=== PATIENT | female | born 1960 | race Caucasian/White ===

== ENCOUNTER 2022-04-06 12:54 | Emergency (ER) | payer MEDICAID, SELFPAY ==
[2022-04-06] VITALS (10 sets, daily range): BP systolic 128–147; BP diastolic 68–90; PULSE 85–102; RESP 16–20; TEMP 36.9; O2SAT 95–99
--- NOTE | ~2022-04-06 | CT_ITS ---
EXAMINATION: CTA chest PE protocol DATE: 04/06/2022 15:47 INDICATION: Right chest pain. Recent travel. Right sided pneumonia. TECHNIQUE: Computed tomography angiography (CTA) of the chest was performed with 100 mL Omnipaque-350 intravenous contrast timed to evaluate the pulmonary arteries. Coronal maximum intensity projection 3D-reconstructions were created by the technologist. Automated exposure control and iterative reconst ruction technique were employed. Exam dose: 244.88 mGy-cm total exam DLP. COMPARISON: 04/06/2022 2 view chest FINDINGS: There is diagnostic contrast enhancement of the pulmonary arteries and no evidence of pulmo nary embolism. No thoracic aortic aneurysm or dissection. 10.4 x 10.4 mm right paratracheal lymph node, likely reactive secondary to prominent right upper lobe consolidation. Differential diagnosis includes right upper lobe up to 5 cm malignant mass. Continued radiographic follow-up is recommended to ensure complete clearing. Large hiatal hernia. Normal morphology of the adrenal glands. Status post cholecystectomy. IMPRESSION: Prominent consolidation versus malignant approximately 5 cm mass, right upper lobe; cont inued radiographic follow-up is recommended to ensure complete clearing No evidence of pulmonary embolism Large hiatal hernia Reviewed, dictated and finalized at [facility]. Reviewed, dictated and finalized at location B. TY OFFICER IMPRESSION: Prominent consolidation versus malignant approximately 5 cm mass, right upper lobe; continued radiographic follow-up is recommended to ensure com plete clearing No evidence of pulmonary embolism Large hiatal hernia
--- NOTE | ~2022-04-06 | XR_ITS ---
EXAMINATION: XR chest 2V DATE: 04/06/2022 13:17 INDICATION: Chest pain. Shortness of breath. Wheezing. TECHNIQUE: Frontal and lateral views of the chest were obtained. COMPARISON: Chest single view 06/27/2006 FINDINGS: There are airspace opacities in right upper lobe, consistent with pneumonia. No pleural eff usion or pneumothorax. The heart size is normal. There is a large hiatal hernia. Surgical clips in th e right upper quadrant are likely from cholecystectomy. IMPRESSION: 1. Right upper lobe pneumonia. 2. Large hiatal hernia. Reviewed, dictated and finalized at location A. E BRAIDER
--- NOTE | 2022-04-06 13:00 | ECG_ITS ---
Measurements Intervals [place] Rate: 97 P: 50 ME: 139 QRS: -34 QRSD: 97 T: 7 QT: 333 QTc: 423 Interpretive Statements SINUS RHYTHM LEFT AXIS DEVIATION POSSIBLE LEFT ATRIAL ENLARGEMENT POOR R WAVE PROGRESSION, ANTERIOR LEADS NONSPECIFIC T-WAVE ABNORMALITY- ANTEROLAT/INF LEADS BORDERLINE ECG NO PREVIOUS ECG AVAILABLE FOR COMPARISON Electronically Signed On 04-06-2022 13:45:49 [employer] CHEMI[employer] by Wolf Gonzalez D.O.
[2022-04-06 13:22] LABS: Basophils Absolute Auto 0.1 K/mm3 (0.0-0.1); Basophils Percent Auto 0.5 % (0.2-1.2); Eosinophils Absolute Auto 0.1 K/mm3 (0-0.3); Eosinophils Percent Auto 0.4 % (0-4.4); Hematocrit 34.2 % (37.0-47.0); Hemoglobin 11.5 g/dL (12.0-15.0); Immature Granulocyte Absolute 0.21 K/mm3 (0.00-0.031); Immature Granulocyte Percent A 1.3 % (0-0.5); Lymphocytes Absolute Auto 1.64 K/mm3 (0.9-3.2); Mean Corpuscular HGB Conc 33.6 g/dl (32-36); Mean Corpuscular Hemoglobin 29.1 pg (26-34); Mean Corpuscular Volume 86.6 fl (80-100); Mean Platelet Volume 8.2 fl (7.4-10.4); Monocytes Absolute Auto 0.9 K/mm3 (0.1-0.6); Monocytes Percent Auto 5.3 % (2.6-8.5); Neutrophils Absolute Auto 13.6 K/mm3 (1.3-6.7); Neutrophils Percent Auto 82.5 % (45.5-73.1); Platelet Count Result 556 k/mm3 (150-375); Red Blood Count 3.95 M/mm3 (4.2-5.4); Red Cell Distribution Width 12.3 % (11.5-14.5); White Blood Count 16.5 K/mm3 (4.5-10.0)
[2022-04-06 13:30] LABS: Alanine Aminotransferase 16 U/L (6-35); Alkaline Phosphatase 97 U/L (38-126); Anion Gap 8 mmol/L (8-16); Aspartate Amino Transferase 20 U/L (14-36); Bilirubin,Total 0.5 mg/dL (0.2-1.3); Blood Urea Nitrogen 14 mg/dL (7-17); Calcium 8.5 mg/dL (8.4-10.2); Carbon Dioxide 25 mmol/L (22-30); Chloride 99 mmol/L (98-107); Estimated CRCL calculation 43 ml/min; Estimated Glomerular Filt Rate 56; Glucose 107 mg/dL (65-110); Lipase 79 U/L (23-300); Potassium 4.1 mmol/L (3.4-5.0); Sodium 132 mmol/L (137-145)
[2022-04-06 13:36] LABS: INR 1.1
[2022-04-06 13:37] LABS: Partial Thromboplastin Time 29.7 SECONDS (22.3-36.8)
[2022-04-06 13:41] LABS: Troponin I < 0.012 ng/mL (0.000-0.034)
--- NOTE | 2022-04-06 14:57 | ED.URI ---
HPI - URI/Sore Throat General Chief Complaint: Upper Respiratory Infection Stated Complaint: pneumonia, fever x 10 days, chest hurts on rt side Time Seen by Provider: 04/06/22 14:56 Source: patient and family Mode of arrival: ambulatory Limitations: no limitations History of Present Illness HPI Narrative: The patient is a 62 yo female with a 10 day history of dyspnea and right sided chest pain. Patient recently traveled to [place] with her grandchildren and family, and has reported fever of 102F at home as well as cough and inspiratory chest pain. Patient denies leg swelling or calf pain. No frontal chest pain. No diaphoresis. Patient reports mild headache with nausea. She denies vomiting or diarrhea. No back pain or ripping/tearing sensation to the flanks. Patient's grandchildren were sick with viral illness, coughing. Related Data Allergies Allergy/AdvReac Type Severity Reaction Status Date / Time codeine Allergy Mild unkown Verified 04/06/22 12:58 NA Allergy Unknown unkown Uncoded 02/15/21 13:49 Review of Systems Review of Systems: CONSTITUTIONAL: Reports fever EYES: Denies visual changes, redness, or discharge. ENT: Denies rhinorrhea or congestion CARDIOVASCULAR: Reports right-sided chest pain without palpitations or edema RESPIRATORY: Reports cough and shortness of breath GASTROINTESTINAL: Denies abdominal pain, reports nausea without vomiting GENITOURINARY: Denies dysuria or hematuria. SKIN: Denies rash or itching. MUSCULOSKELETAL: Denies back pain, joint pain, or myalgia. NEUROLOGIC: Reports mild headache without focal numbness or weakness [facility] Family History Family History Mother Patient's mother is Father Patient's father is Social History Social History Smoking status: Never smoker Second hand tobacco smoke exposure: Yes Alcohol intake: never Exam Narrative: GENERAL: Awake, alert, conversant HEAD: Normocephalic, atraumatic. EYES: PERRLA and EOMI. ENT: Nares clear, no rhinorrhea or epistaxis. Mucous membranes moist. NECK: Supple. CHEST: No respiratory distress, breathing even and non labored, coarse breath sounds right middle lobe, lung bases clear, no crackles HEART: Regular rate, sinus rhythm, no murmur, rubs or gallops ABDOMEN:Non distended, non tender EXTREMITIES: Normal range of motion. No edema. No calf erythema or pain. SKIN: Warm, dry, no rash. NEURO:No focal deficits. Alert and oriented x3 Course Vital Signs Vital signs: Vital Signs Temperature 36.9 C 04/06/22 12:57 Pulse Rate 102 H 04/06/22 12:57 Respiratory Rate 18 04/06/22 12:57 Blood Pressure 128/75 04/06/22 12:57 Pulse Oximetry 99 04/06/22 12:57 Temperature 36.9 C 04/06/22 12:57 Pulse Rate 85 04/06/22 15:04 Respiratory Rate 17 04/06/22 15:04 Blood Pressure 147/90 H 04/06/22 15:04 Pulse Oximetry 95 04/06/22 15:11 Oxygen Delivery Room Air 04/06/22 15:11 MDM - URI/Sore Throat MDM Narrative Medical decision making narrative: Patient presenting for evaluation of cough and shortness of breath. At the time of initial assessment, ABCs are intact and vital signs are stable. Patient is not hypoxic on room air. No increased work of breathing. Differential includes pneumonia, URI, bronchitis, COVID, mass. IV access obtained and labs are drawn. Laboratory results notable for a leukocytosis. Patient is not meeting criteria for sepsis, she is afebrile no significant tachycardia, thus did not obtain lactic or blood cultures. A CTA was obtained to ensure no PE given recent travel and better characterize her pneumonia and this is consistent with a pneumonia but cannot definitively rule out mass. Patient will require repeat CTA to ensure that her pneumonia has cleared. Patient will be started on antibiotic therapy, for community-acquired pneumoni
[2022-04-06] MEDS: AMOXICILLIN 500 MG CAPSULE 1000 MG PO (16:41)
[2022-04-06] MEDS: AZITHROMYCIN 250 MG TABLET 500 MG PO (16:41)
[2022-04-06 17:04] LABS: Troponin I < 0.012 ng/mL (0.000-0.034)
== END 2022-04-06 17:13 | disposition home or self-care (01) ==
PROVIDERS: Emergency Medicine; Emergency Provider Emergency Medicine; PCP Internal Medicine
DX: J18.9 Pneumonia, unspecified organism (principal); K44.9 Diaphragmatic hernia without obstruction or gangrene; R94.31 Abnormal electrocardiogram [ECG] [EKG]; R91.8 Other nonspecific abnormal finding of lung field
CPT/HCPCS: 36415; 71046; 71275; 80053; 83690; 84484; 85025; 85380; 85610; 85730; 93005; 99284; A9270; Q9967

== ENCOUNTER 2022-04-18 13:18 | Outpatient (CLI) | payer MEDICAID, SELFPAY ==
--- NOTE | ~2022-04-18 | XR_ITS ---
XR chest 2V 04/18/2022 13:32 Indication: Pneumonia. Procedure: 2 views chest Comparison: 04/06/2022 Findings: There is unchanged masslike consolidation right upper lobe, suspicious for underlying malig myra. Large hiatal hernia. Large hiatal hernia. Heart size normal. Left lung clear. There are cholec ystectomy clips. Impression: 1: Stable masslike density right upper lobe, suspicious for bronchogenic carcinoma. Recommend correla tion with percutaneous biopsy or PET/CT scan. Reviewed, dictated and finalized at location A. OR DICTIONARY Impression: 1: Stable masslike density right upper lobe, suspicious for bronchogenic carcin ariela. Recommend correlation with percutaneous biopsy or PET/CT scan.
== END 2022-04-18 13:19 | disposition home or self-care (01) ==
PROVIDERS: PCP Internal Medicine; Visit Provider Internal Medicine
DX: J18.9 Pneumonia, unspecified organism (principal); J98.4 Other disorders of lung
CPT/HCPCS: 71046

== ENCOUNTER 2022-04-24 11:56 | Outpatient (CLI) | payer MEDICAID, SELFPAY ==
--- NOTE | ~2022-04-24 | CT_ITS ---
EXAMINATION:CT chest high resolution wo co DATE: 04/24/2022 12:19 INDICATION: Lung mass. TECHNIQUE: Computed tomography (CT) of the chest was performed without intravenous contrast. Automate d exposure control and iterative reconstruction technique were employed. The dose-length product (DLP ) was 121.28 mGy-cm. COMPARISON: Chest CT 04/06/2022 FINDINGS: There is mild atelectasis bilaterally. There is a 3.9 x 3.0 x 3.7 cm mass in right lung upp er lobe, decreased from 5.2 x 5.7 x 4.5 cm. No pleural effusion. There is a large sliding hiatal eliane ia. The heart size is normal. No pericardial effusion. There is mild mediastinal lymphadenopathy, lik sarah reactive. There are changes of cholecystectomy. There is severe thoracic spondylosis. IMPRESSION: 1. Mass in right lung upper lobe with interval improvement, consistent with pneumonia. Continued foll ow-up with chest radiographs in 4-6 weeks is recommended to confirm resolution. 2. Large sliding hiatal hernia. Reviewed, dictated and finalized at location A. [employer] IMPRESSION: 1. Mass in right lung upper lobe with interval improvement, consistent with pne umonia. Continued follow-up with chest radiographs in 4-6 weeks is recommended to confirm resolution. 2. Large sliding hiatal hernia.
== END 2022-04-24 11:57 | disposition home or self-care (01) ==
PROVIDERS: PCP Internal Medicine; Visit Provider Internal Medicine
DX: R91.8 Other nonspecific abnormal finding of lung field (principal); K44.9 Diaphragmatic hernia without obstruction or gangrene
CPT/HCPCS: 71250

== ENCOUNTER 2022-06-14 15:08 | Outpatient (CLI) | payer MEDICAID, SELFPAY ==
--- NOTE | ~2022-06-14 | XR_ITS ---
EXAMINATION: XR chest 2V Exam Date/Time: 06/14/2022 15:25 CDT HISTORY: J18.9 - Pneumonia, FOLLOW UP Comparison: 04/18/2022, 04/06/2022, 06/27/2006, 05/31/2004; CT chest 04/24/2022; CTPA 04/06/2022. RESULT: Lines, tubes, and devices: Cholecystectomy clips. Lungs and pleura: No acute process. Continued interval improvement in the right upper lobe airspace disease, only sparse reticulonodular opacities remain. Cardiomediastinal silhouette: Stable. Moderate hiatal hernia. Other: No acute osseous or upper abdominal finding. IMPRESSION: Significant interval improvement in the right upper lobe airspace disease, reticulonodular opacities remain which likely represent postinfectious change/scarring. Reviewed, dictated and finalized at [facility]. IMPRESSION: Significant interval improvement in the right upper lobe airspace disease, reti culonodular opacities remain which likely represent postinfectious change/scarr ing.
== END 2022-06-14 15:09 | disposition home or self-care (01) ==
PROVIDERS: PCP Internal Medicine; Visit Provider Internal Medicine
DX: J18.9 Pneumonia, unspecified organism (principal); R91.8 Other nonspecific abnormal finding of lung field
CPT/HCPCS: 71046

== ENCOUNTER 2022-09-07 14:19 | Emergency (ER) | payer BC, SELFPAY ==
[2022-09-07] VITALS (11 sets, daily range): BP systolic 112–138; BP diastolic 71–78; PULSE 70–84; RESP 14–18; TEMP 36.5; O2SAT 96–100
--- NOTE | ~2022-09-07 | CT_ITS ---
EXAMINATION: CT abdomen pelvis w con DATE: 09/07/2022 15:41 INDICATION: Epigastric abdominal pain. TECHNIQUE: Computed tomography (CT) of the abdomen and pelvis was performed with 100 mL Omnipaque 350 intravenous contrast. Automated exposure control and iterative reconstruction technique were employe d. The dose-length product was 326.69 mGy-cm. COMPARISON: CT abdomen 06/09/2004 FINDINGS: The visualized portions of the lung bases demonstrate mild atelectasis. No pleural effusion . The heart size is normal. No pericardial effusion. There is a large sliding hiatal hernia. There ar e cysts in the liver measuring up to 5 mm. There are changes of cholecystectomy. The spleen, pancreas , adrenal glands, and right kidney are normal. There are 2 mm and 3 mm stones in left kidney. There a re no dilated loops of bowel. The appendix is normal. There are no pathologically enlarged lymph node s. There is no free intraperitoneal fluid. There is mild thoracic and lumbar spondylosis. IMPRESSION: 1. Large sliding hiatal hernia. Reviewed, dictated and finalized at location A.
--- NOTE | 2022-09-07 14:32 | ECG_ITS ---
Measurements Intervals [employer] Rate: 74 P: 32 [place]: 146 QRS: -30 QRSD: 98 T: -12 QT: 383 QTc: 427 Interpretive Statements SINUS RHYTHM BORDERLINE LEFT AXIS DEVIATION [QRS AXIS < -20] ST DEVIATION AND MODERATE T-WAVE ABNORMALITY, CONSIDER ANTEROLATERAL ISCHEMIA [-0.1+ mV T WAVE IN V3-V6] COMPARED TO ECG 04/06/2022 13:06:19 NO SIGNIFICANT CHANGES Electronically Signed On 09-08-2022 10:42:12 CDT by Jono Bowman M.D.
[2022-09-07 14:46] LABS: Basophils Absolute Auto 0.1 K/mm3 (0.0-0.1); Eosinophils Absolute Auto 0.1 K/mm3 (0-0.3); Eosinophils Percent Auto 1.3 % (0-4.4); Hematocrit 39.7 % (37.0-47.0); Hemoglobin 13.6 g/dL (12.0-15.0); Immature Granulocyte Absolute 0.02 K/mm3 (0.00-0.031); Immature Granulocyte Percent A 0.3 % (0-0.5); Lymphocytes Absolute Auto 2.08 K/mm3 (0.9-3.2); Lymphocytes Percent Auto 30.7 % (18.3-44.2); Mean Corpuscular HGB Conc 34.3 g/dl (32-36); Mean Corpuscular Hemoglobin 29.5 pg (26-34); Mean Corpuscular Volume 86.1 fl (80-100); Mean Platelet Volume 8.7 fl (7.4-10.4); Monocytes Absolute Auto 0.3 K/mm3 (0.1-0.6); Monocytes Percent Auto 4.9 % (2.6-8.5); Neutrophils Absolute Auto 4.2 K/mm3 (1.3-6.7); Neutrophils Percent Auto 61.8 % (45.5-73.1); Platelet Count Result 332 k/mm3 (150-375); Red Blood Count 4.61 M/mm3 (4.2-5.4); Red Cell Distribution Width 13.5 % (11.5-14.5); White Blood Count 6.8 K/mm3 (4.5-10.0)
[2022-09-07 14:55] LABS: INR 0.9; Prothrombin Time 12.7 Seconds (11.1-14.7)
[2022-09-07 15:00] LABS: Lactic Acid Reflex 1.3 mmol/L (0.7-2.0)
[2022-09-07] MEDS: MORPHINE SULFATE (*CRX) 2 MG/ML INJ IV PUSH (15:03)
[2022-09-07] MEDS: SODIUM CHLORIDE 0.9% IV 1,000 ML 150 ML IV CONT (15:03)
[2022-09-07] MEDS: ONDANSETRON INJ 4 MG/2 ML VIAL IV PUSH (15:03)
[2022-09-07 15:05] LABS: Appearance Urine Clear (Clear); Bacteria Urine None Seen /hpf; Bilirubin Urine Negative (Negative); Blood Urine Trace (Negative); Color Urine Yellow (Yellow); Glucose Urine UA Negative (Negative); Ketones Urine Negative (Negative); Leukocyte Esterase Ur Negative LEU/UL (Negative); Nitrate Urine Negative (Negative); Non Pathogenic Casts 0-2; Protein Urine Negative (Negative); RBC Urine 0-2 /hpf (0-2); Squamous Epithelial Cell Urine None seen /hpf (Few); Urobilinogen Urine 0.2 mg/dL (<2.0); WBC Urine 0-5 /hpf
[2022-09-07 15:10] LABS: Add Urine Microscopic? YES
[2022-09-07 15:12] LABS: NT Pro B Type Natriuretic Pept 105 pg/mL (19.9-100); Troponin I < 0.012 ng/mL (0.000-0.034)
[2022-09-07 15:17] LABS: Alanine Aminotransferase 19 U/L (6-35); Albumin Level 4.6 g/dL (3.5-5.1); Alkaline Phosphatase 83 U/L (38-126); Anion Gap 8 mmol/L (8-16); Aspartate Amino Transferase 23 U/L (14-36); Bilirubin,Total 0.5 mg/dL (0.2-1.3); Blood Urea Nitrogen 15 mg/dL (7-17); Calcium 9.1 mg/dL (8.4-10.2); Carbon Dioxide 24 mmol/L (22-30); Chloride 102 mmol/L (98-107); Estimated CRCL calculation 35 ml/min; Estimated Glomerular Filt Rate 45; Glucose 141 mg/dL (65-110); Lipase 181 U/L (23-300); Potassium 4.1 mmol/L (3.4-5.0); Sodium 134 mmol/L (137-145)
--- NOTE | 2022-09-07 16:10 | ED.ABDPAIN ---
HPI - Abdominal Pain General Chief Complaint: Abdominal Pain Stated Complaint: epigastric pain Time Seen by Provider: 09/07/22 14:31 Source: patient and family Mode of arrival: ambulatory Limitations: no limitations History of Present Illness HPI narrative: 62-year-old here with complaints of upper abdominal pain for past 1 week. Patient states that its uncomfortable feeling that she has in the upper abdomen. She denies any vomiting but has some nausea. She denies any chest pain or shortness of breath. No history of fever or chills . MD elicited complaint: abdominal pain Pertinent past history: none Onset (ago): week(s) (1) Pain Consistency: constant Location: none Severity: moderate Quality: aching Radiation: none Migration to: no migration Exacerbating factors: nothing Relieving factors: nothing Related Data Patient : No Allergies Allergy/AdvReac Type Severity Reaction Status Date / Time codeine Allergy Mild unkown Verified 09/07/22 14:21 NA Allergy Unknown unkown Uncoded 09/07/22 14:21 Review of Systems Review of Systems: All systems reviewed & are unremarkable except as noted in HPI and below Constitutional: Constitutional: Reports no additional constitutional complaints Eyes: Eyes: Reports no additional eye complaints ENT: Reports system reviewed and no additional complaints, except as documented Cardiovascular: Cardiovascular: Reports no additional cardiovascular complaints Respiratory: Respiratory: Reports no additional respiratory complaints Gastrointestinal: Gastrointestinal: Reports no additional gastrointestinal complaints Musculoskeletal: Musculoskeletal: Reports no additional musculoskeletal complaints Integumentary/Breasts: Skin/Breast: Reports system reviewed and no additional complaints, except as docu Neurologic: Reports system reviewed and no additional complaints, except as documented Endocrine: Endocrine: Reports no additional endocrine complaints [facility] Family History Family History Mother Patient's mother is Father Patient's father is Social History Social History (Updated 04/11/22 @ 14:08 by Deirdre Thompson CMA) Smoking status: Never smoker Second hand tobacco smoke exposure: Yes Alcohol intake: never Substance use: unknown Lack of Transportation: No Lack of Food: Never True Current Housing: I Have Housing Concerned About Future Housing: No Difficulty Paying Gas/Electric Bills: No Difficulty Paying for Meds: No Currently Unemployed: No Education: High School Diploma/GED Difficulty w/ Childcare or Family Care: No Exam Narrative: GENERAL: Well-appearing, well-nourished, and in no acute distress. HEAD: Normocephalic, atraumatic. EYES: PERRLA and EOMI.. NECK: Supple. CHEST: Clear to auscultation. No respiratory distress. HEART: Regular rate and rhythm. No murmur heard. Normal peripheral pulses. ABDOMEN: Soft,tender in the epigastric area , nondistended, normal active bowel sounds. EXTREMITIES: Normal range of motion. No edema. SKIN: Warm, dry, no rash. NEURO: No focal deficits. Alert and oriented x3. PSYCH: Normal mood and affect. Course Course Emergency Course: Notified patient about her lab work, CT findings recommended her to follow-up with her primary doctor for CT surgery referral for her large hernia repair. Vital Signs Vital signs: Vital Signs Temperature 36.5 C 09/07/22 14:21 Pulse Rate 84 09/07/22 14:21 Respiratory Rate 16 09/07/22 14:21 Blood Pressure 130/73 09/07/22 14:21 Pulse Oximetry 100 09/07/22 14:21 Oxygen Delivery Room Air 09/07/22 14:21 Temperature 36.5 C 09/07/22 14:21 Pulse Rate 72 09/07/22 15:16 Respiratory Rate 17 09/07/22 15:16 Blood Pressure 112/71 09/07/22 15:16 Pulse Oximetry 98 09/07/22 15:16 Oxygen Delivery Room Air 09/07/22 14:21 MDM - Abdominal Pa
== END 2022-09-07 16:25 | disposition home or self-care (01) ==
PROVIDERS: Emergency Provider Family Medicine; PCP Internal Medicine
DX: K44.9 Diaphragmatic hernia without obstruction or gangrene (principal); R10.13 Epigastric pain; Z77.22 Contact with and (suspected) exposure to environmental tobacco smoke (acute) (chronic); R94.31 Abnormal electrocardiogram [ECG] [EKG]
CPT/HCPCS: 36415; 74177; 80053; 81001; 83605; 83690; 83880; 84484; 85025; 85610; 93005; 96361; 96374; 96375; 99284; J2270; J2405; J7030; Q9967

== ENCOUNTER 2023-03-02 15:12 | Outpatient (CLI) | payer MEDICARE, SELFPAY ==
--- NOTE | ~2023-03-02 | XR_ITS ---
EXAMINATION: XR chest 2V 03/02/2023 15:30 INDICATION: Cough and shortness of breath PROCEDURE: 2 view chest COMPARISON: Comparison to multiple prior studies sequentially, with oldest reviewed study dated 2022. FINDINGS: No focal pneumonia. There is right upper lobe scarring. The cardiomediastinal silhouette is within normal limits. There are no pleural effusions. There is no pneumothorax suspected. Large h iatal hernia. IMPRESSION: 1: NO ACUTE CARDIOPULMONARY DISEASE. 2: Large hiatal hernia. Reviewed, dictated and finalized at location L. RTRAIN CONTROL SYSTEMS ENGINEER
== END 2023-03-02 15:13 | disposition home or self-care (01) ==
LOC: ANHIMG 15:19
PROVIDERS: PCP Internal Medicine; Visit Provider Physician Assistant
DX: R05.9 Cough, unspecified (principal); R06.02 Shortness of breath; K44.9 Diaphragmatic hernia without obstruction or gangrene
CPT/HCPCS: 71046

== ENCOUNTER 2023-04-10 00:59 | Day surgery (SDC) | payer MEDICARE, SELFPAY ==
[2023-03-14 09:38] VITALS: BMI 27.3
--- NOTE | 2023-04-06 09:44 | SUR.PREOP ---
Patient called regarding upcoming procedure. Reviewed preop instructions, new appointment times, and procedure prep.
--- NOTE | 2023-04-09 11:14 | PM.HPGS ---
History of Present Illness History of Present Illness Consent: Risks, benefits, and alternatives have been discussed and questions answered. Patient agrees to proceed with procedure. Chief complaint: GERD,Abdominal Distension(gaseous) Narrative: Sherita Jiang is a 63 year old female Referred for endoscopy because of persistent reflux symptoms. Her symptoms primarily of sick feeling in her stomach. Rubbing her abdomen she showed me how it is bloated much the day. It is flat in the morning but gets larger. She does not burp excessive weight. Rarely she might regurgitate some food if she lays down after meal. She denies having actual heartburn. He states that he has been on medicine such as Nexium for 40 years trying various different meds without much success. These were always prescribe because of her upset stomach Review of Systems Review of Systems: All systems reviewed & are unremarkable except as noted in HPI and below PMFSH Family History Family History Mother Patient's mother is Father Patient's father is Social History Social History Smoking status: Never smoker Second hand tobacco smoke exposure: Yes Alcohol intake: never Substance use: unknown Substance use type: does not use Lack of Transportation: No Lack of Food: Never True Current Housing: I Have Housing Concerned About Future Housing: No Difficulty Paying Gas/Electric Bills: No Difficulty Paying for Meds: No Currently Unemployed: No Education: High School Diploma/GED Difficulty w/ Childcare or Family Care: No Living arrangements: with family Spiritual care concerns: No Meds Home Medications and Allergies Home Medications Medication Instructions Recorded Confirmed Type alprazolam 0.25 mg tablet 0.25 mg PO BID PRN anxiety #30 tabs 11/28/22 04/10/23 Rx fluoxetine 40 mg capsule 40 mg PO DAILY #90 caps 11/28/22 04/10/23 Rx pantoprazole 40 mg tablet,delayed 40 mg PO QAM #90 tabs 03/08/23 04/10/23 Rx release tramadol 50 mg tablet 50 mg PO Q6H PRN Pain 03/08/23 04/10/23 History Allergies Allergy/AdvReac Type Severity Reaction Status Date / Time codeine AdvReac Mild Other Verified 04/10/23 12:02 Exam Const: General: alert Orientation/consciousness: patient oriented x3 Resp: Auscultation: clear to auscultation bilaterally Cardio: Rhythm: regular rhythm GI: GI Palp: Yes Soft to palpation and No Tenderness to palpation present (GI) Neuro: General: patient oriented x3 Assessment and Plan Assessment and plan (1) Gastro-esophageal reflux disease without esophagitis: Code(s): K21.9 - Gastro-esophageal reflux disease without esophagitis Status: Acute Assessment and Plan: EGD with possible biopsy or dilatation or cautery.
[2023-04-10 12:03] VITALS: BP 155/74; PULSE 76; RESP 16; TEMP 36.5; O2SAT 99
[2023-04-10] MEDS: LACTATED RINGERS 1,000 ML 150 ML IV CONT (12:05)
--- NOTE | 2023-04-10 12:56 | P.PNAN_ITS ---
Anes - Initial Pre Proc Eval Procedure: Operation Date: 04/10/23 13:00 Proposed Procedures p Esophagogastroduodenoscopy - Emir Luke MD Date/Time: 04/10/23 12:56 Surgeon: Emir Luke MD Pre Op Diagnosis: GERD,Abdominal Distension(gaseous) Patient Data Age: 63 Gender: F Height: 1.52 m Weight: 59.7 kg Last Vital Signs Temp 97.7 F 04/10/23 12:03 Pulse 76 04/10/23 12:03 Resp 16 04/10/23 12:03 BP 155/74 H 04/10/23 12:03 Pulse Ox 99 04/10/23 12:03 O2 Del Method Room Air 04/10/23 12:03 Allergies Allergy/AdvReac Type Severity Reaction Status Date / Time codeine AdvReac Mild Other Verified 04/10/23 12:02 Home Medications Medication Instructions Recorded Confirmed Type alprazolam 0.25 mg tablet 0.25 mg PO BID PRN anxiety #30 tabs 11/28/22 04/10/23 Rx fluoxetine 40 mg capsule 40 mg PO DAILY #90 caps 11/28/22 04/10/23 Rx pantoprazole 40 mg tablet,delayed 40 mg PO QAM #90 tabs 03/08/23 04/10/23 Rx release tramadol 50 mg tablet 50 mg PO Q6H PRN Pain 03/08/23 04/10/23 History Patient hx anesthesia problems: none Family hx anesthesia problems: none Results Review: All pre-operative results and documents have been reviewed as part of the pre- operative evaluation. [facility] Family History Family History Mother Patient's mother is Father Patient's father is Social History Social History Smoking status: Never smoker Second hand tobacco smoke exposure: Yes Alcohol intake: never Substance use: unknown Substance use type: does not use Lack of Transportation: No Lack of Food: Never True Current Housing: I Have Housing Concerned About Future Housing: No Difficulty Paying Gas/Electric Bills: No Difficulty Paying for Meds: No Currently Unemployed: No Education: High School Diploma/GED Difficulty w/ Childcare or Family Care: No Living arrangements: with family Spiritual care concerns: No Anes - Eval Final PreProcedure Day of Procedure 04/10/23 12:56 Patient weight: normal Heart: regular rate and rhythm Lungs: clear to auscultation Airway: Mallampati scale class II Neurological: alert and oriented Last oral intake: >/= 8 hours ASA classification: II Emergent: no Anesthetic plan: proceed Anesthesia type and monitoring: general GIVS and standard monitoring Results Review: All pre-operative results and documents have been reviewed as part of the pre- operative evaluation. Informed Consent: The patient's anesthetic plan and its attendant risks and benefits were discussed with the patient/family/POA. Questions were solicited and answers provided to the satisfaction of the patient/family/POA.
[2023-04-10 13:31] VITALS: BP 126/78; PULSE 94; RESP 31; O2SAT 97
[2023-04-10 13:41] VITALS: BP 125/81; PULSE 74; RESP 23; O2SAT 97
[2023-04-10 13:51] VITALS: BP 127/75; PULSE 67; RESP 18; O2SAT 98
== END 2023-04-10 14:00 | disposition home or self-care (01) ==
PROVIDERS: PCP Internal Medicine; Referring Provider Physician Assistant; Visit Provider Internal Medicine Gastroenterology
PROC: 0DJ08ZZ Inspection of Upper Intestinal Tract, Via Natural or Artificial Opening Endoscopic (ICD-10-PCS; CPT 43235; principal; 2023-04-10 13:00)
DX: K21.9 Gastro-esophageal reflux disease without esophagitis (principal); K44.9 Diaphragmatic hernia without obstruction or gangrene; K31.89 Other diseases of stomach and duodenum; Z79.891 Long term (current) use of opiate analgesic
CPT/HCPCS: 43239; 36415; 80053; 80061; 82607; 82746; 84443; 85025; 88305; J2704; J7120

== ENCOUNTER 2023-04-10 14:27 | Outpatient (CLI) | payer MEDICARE, SELFPAY ==
[2023-04-10 14:53] LABS: Basophils Absolute Auto 0.1 K/mm3 (0.0-0.1); Basophils Percent Auto 0.7 % (0.2-1.2); Eosinophils Absolute Auto 0.1 K/mm3 (0-0.3); Eosinophils Percent Auto 1.9 % (0-4.4); Hematocrit 39.8 % (37.0-47.0); Immature Granulocyte Absolute 0.05 K/mm3 (0.00-0.031); Immature Granulocyte Percent A 0.7 % (0-0.5); Lymphocytes Absolute Auto 2.12 K/mm3 (0.9-3.2); Lymphocytes Percent Auto 29.3 % (18.3-44.2); Mean Corpuscular HGB Conc 32.7 g/dl (32-36); Mean Corpuscular Volume 88.8 fl (80-100); Mean Platelet Volume 8.7 fl (7.4-10.4); Monocytes Absolute Auto 0.4 K/mm3 (0.1-0.6); Monocytes Percent Auto 5.4 % (2.6-8.5); Neutrophils Absolute Auto 4.5 K/mm3 (1.3-6.7); Platelet Count Result 303 k/mm3 (150-375); Red Blood Count 4.48 M/mm3 (4.2-5.4); Red Cell Distribution Width 13.5 % (11.5-14.5); White Blood Count 7.2 K/mm3 (4.5-10.0)
[2023-04-10 15:04] LABS: Alanine Aminotransferase 16 U/L (6-35); Albumin Level 4.3 g/dL (3.5-5.1); Alkaline Phosphatase 60 U/L (38-126); Anion Gap 8 mmol/L (8-16); Aspartate Amino Transferase 22 U/L (14-36); Bilirubin,Total 0.6 mg/dL (0.2-1.3); Blood Urea Nitrogen 10 mg/dL (7-17); Calcium 9.2 mg/dL (8.4-10.2); Carbon Dioxide 27 mmol/L (22-30); Chloride 104 mmol/L (98-107); Cholesterol 269 mg/dL (0-200); Estimated Glomerular Filt Rate > 60; Glucose 93 mg/dL (65-110); HDL Direct 101 mg/dL; Potassium 4.5 mmol/L (3.4-5.0); Sodium 139 mmol/L (137-145); Triglycerides 116 mg/dL (<150)
[2023-04-10 15:14] LABS: LDL Cholesterol Direct 121 mg/dL
[2023-04-10 16:17] LABS: Folic Acid 12.1 ng/mL (2.76->20)
== END 2023-04-10 14:28 | disposition home or self-care (01) ==
PROVIDERS: PCP Internal Medicine; Visit Provider Physician Assistant
DX: R53.83 Other fatigue (principal); E78.00 Pure hypercholesterolemia, unspecified
CPT/HCPCS: 36415; 80053; 80061; 82607; 82746; 84443; 85025

== ENCOUNTER 2024-03-09 07:21 | Outpatient (CLI) | payer MEDICARE, SELFPAY ==
[2024-03-09 07:43] LABS: Basophils Absolute Auto 0.1 K/mm3 (0.0-0.1); Eosinophils Absolute Auto 0.1 K/mm3 (0-0.3); Eosinophils Percent Auto 2.3 % (0-4.4); Hematocrit 39.1 % (37.0-47.0); Hemoglobin 12.9 g/dL (12.0-15.0); Immature Granulocyte Absolute 0.02 K/mm3 (0.00-0.031); Immature Granulocyte Percent A 0.4 % (0-0.5); Lymphocytes Absolute Auto 1.51 K/mm3 (0.9-3.2); Lymphocytes Percent Auto 31.5 % (18.3-44.2); Mean Corpuscular Hemoglobin 28.7 pg (26-34); Mean Corpuscular Volume 87.1 fl (80-100); Mean Platelet Volume 8.8 fl (7.4-10.4); Monocytes Absolute Auto 0.4 K/mm3 (0.1-0.6); Monocytes Percent Auto 7.7 % (2.6-8.5); Neutrophils Absolute Auto 2.7 K/mm3 (1.3-6.7); Neutrophils Percent Auto 57.1 % (45.5-73.1); Platelet Count Result 294 k/mm3 (150-375); Red Blood Count 4.49 M/mm3 (4.2-5.4); Red Cell Distribution Width 13.6 % (11.5-14.5); White Blood Count 4.8 K/mm3 (4.5-10.0)
[2024-03-09 08:05] LABS: Alanine Aminotransferase 13 U/L (6-35); Albumin Level 4.5 g/dL (3.5-5.1); Alkaline Phosphatase 57 U/L (38-126); Anion Gap 4 mmol/L (4-12); Aspartate Amino Transferase 26 U/L (14-36); Bilirubin,Total 0.7 mg/dL (0.2-1.3); Blood Urea Nitrogen 9 mg/dL (7-17); Calcium 9.2 mg/dL (8.4-10.2); Carbon Dioxide 29 mmol/L (22-30); Chloride 105 mmol/L (98-107); Cholesterol 236 mg/dL (0-200); Estimated Glomerular Filt Rate > 60; Glucose 102 mg/dL (65-110); HDL Direct 96 mg/dL; Potassium 4.4 mmol/L (3.4-5.0); Sodium 138 mmol/L (137-145); Triglycerides 98 mg/dL (<150)
[2024-03-09 08:07] LABS: Hemoglobin A1C 5.7 % (<5.7)
[2024-03-09 08:16] LABS: LDL Cholesterol Direct 101 mg/dL
[2024-03-09 08:33] LABS: Free T4 Free Thyroxine 0.95 ng/dL (0.78-2.19)
[2024-03-09 08:35] LABS: Total Triiodothyronine (T3) 1.64 NG/ML (0.97-1.69)
[2024-03-09 09:06] LABS: Hepatitis C Virus Antibody Negative (Negative)
== END 2024-03-09 07:22 | disposition home or self-care (01) ==
LOC: ANHLAB 07:24
PROVIDERS: PCP Family Medicine; Visit Provider Registered Nurse
DX: E78.5 Hyperlipidemia, unspecified (principal); R73.01 Impaired fasting glucose; R53.83 Other fatigue; Z11.59 Encounter for screening for other viral diseases
CPT/HCPCS: 36415; 80053; 80061; 83036; 84439; 84443; 84480; 85025; 86803

== ENCOUNTER 2024-10-03 09:47 | Outpatient (CLI) | payer MEDICARE, SELFPAY ==
--- OUTSIDE RECORDS SUMMARY | 2024-10-03 09:55 | XMS_ITS | Clinical Summary ---
Author Organization [employer] Address [address] [facility] Attn: Epic Prelude ADT DARRIN GRANT A[place] [id number] Care Team Providers Care Solder Technician Name Role Phone Unavailable Primary Care Provider Unavailabl e Encounters Date Type Department Care Team Description 09/24/2024 External Device Data [facility] ABSTRACTION Provider, Abstract from Last 3 Months Social History Tobacco Use Types Packs/Day Years Used Date Smoking Tobacco: Never Assessed Comments Unknown Sex and Gender Information Value Date Recorded Sex Assigned at Not on file Legal Sex Female 9:50 PM CDT Gender Identity Not on file Sexual Orientation Not on file Plan of Treatment Health Maintenance Due Date Last Done Comments DTAP/TDAP/TD VACCINES (1 - Tdap) 1977 BREAST CANCER SCREENING 1998 COLORECTAL SCREENING 2003 Colorectal Cancer Screening 2003 FIT-DNA Q 3 years 2003 FIT/FOBT Q 1 year 2003 Flex Sig/CT Colonography Q 5 years 2003 PNEUMOCOCCAL VACCINE 50+ YEARS (1 of 1 - PCV) 01/19/20 08 ZOSTER VACCINE (1 of 2) 01/19/2008 OSTEOPOROSIS SCREENING 2023 INFLUENZA VACCINE (#1) 2024 RSV VACCINE (60+ or ) (1 - 1-dose 75+ series) 2033
--- OUTSIDE RECORDS SUMMARY | 2024-10-03 09:55 | XMS_ITS | Clinical Summary ---
Author Organization [facility] Care Team Providers Care Failure Analysis Technician Name Role Phone Unavailable Primary Care Provider Unavailabl e Social History Tobacco Use Types Packs/Day Years Used Date Smoking Tobacco: Never Assessed Comments Unknown Sex and Gender Information Value Date Recorded Sex Assigned at Not on file Legal Sex Female 2:18 PM CDT Gender Identity Not on file Sexual Orientation Not on file Plan of Treatment Health Maintenance Due Date Last Done Comments DEXA Bone Density 1958 Hepatitis C Virus (HCV) Screening 1958 TdaP Immunization 1958 Pap Smear 1979 Cervical Cancer Screening (CCS) 01/19/1988 HPV/Cotest 01/19/1988 Colonoscopy 2003 Colorectal Cancer Screening 2003 Cologuard 01/19/2008 Immunochemical Fecal Occult Blood 01/19/2008 Mammogram 01/19/2008 Pneumococcal Immunization (5 0+ years) (1 of 1 - PCV) 01/19/2008 Zoster Immunization (1 of 2) 01/19/2008 Influenza Immunization (#1) 2023 SARS-COV-2 Immunization (2023- season) 2023 Respiratory Syncytial Virus (RSV) Immunization (Adult) (1 - 1-dose 75+ series) 2033 Hepatitis B Immunization Aged Out No longer eligible based on patient's age to complete this topic Meningococcal Immunization (ACWY) Aged Out No longer eligible based on patient's age to complete this topic Rotavirus Immunization Aged Out No lo nger eligible based on patient's age to complete this topic
[2024-10-03 10:18] LABS: Hematocrit 41.0 % (37.0-47.0); Hemoglobin 13.6 g/dL (12.0-15.0); Immature Granulocyte Percent A 1.1 % (0-0.5); Lymphocytes Absolute Auto 1.77 K/mm3 (0.9-3.2); Mean Corpuscular HGB Conc 33.2 g/dl (32-36); Mean Corpuscular Hemoglobin 29.8 pg (26-34); Mean Corpuscular Volume 89.7 fl (80-100); Nucleated Red Blood Cells Absolute Auto 0.000 K/mm3 (0.0-0.012); Nucleated Red Blood Cells Perc 0.0 % (0.0-0.2); Platelet Count Result 297 k/mm3 (150-375); Red Blood Count 4.57 M/mm3 (4.2-5.4); White Blood Count 5.4 K/mm3 (4.5-10.0)
[2024-10-03 10:28] LABS: Hemoglobin A1C 5.5 % (<5.7)
[2024-10-03 10:29] LABS: Alanine Aminotransferase 18 U/L (6-35); Albumin Level 4.2 g/dL (3.5-5.1); Alkaline Phosphatase 56 U/L (38-126); Anion Gap 8 mmol/L (4-12); Aspartate Amino Transferase 24 U/L (14-36); Bilirubin,Total 0.5 mg/dL (0.2-1.3); Blood Urea Nitrogen 9 mg/dL (7-17); Calcium 9.2 mg/dL (8.4-10.2); Carbon Dioxide 25 mmol/L (22-30); Chloride 105 mmol/L (98-107); Cholesterol 239 mg/dL (0-200); Estimated Glomerular Filt Rate 60; Glucose 96 mg/dL (65-110); HDL Direct 88 mg/dL; Potassium 4.5 mmol/L (3.4-5.0); Sodium 138 mmol/L (137-145); Total Protein 7.5 g/dL (6.3-8.2); Triglycerides 116 mg/dL (<150)
== END 2024-10-03 09:48 | disposition home or self-care (01) ==
PROVIDERS: PCP Family Medicine; Visit Provider Registered Nurse
DX: E78.5 Hyperlipidemia, unspecified (principal); R73.01 Impaired fasting glucose
CPT/HCPCS: 36415; 80053; 80061; 83036; 85025

== ENCOUNTER 2024-11-05 13:59 | Outpatient (CLI) | payer MEDICARE, SELFPAY ==
--- OUTSIDE RECORDS SUMMARY | 2024-11-05 14:10 | XMS_ITS | Clinical Summary ---
Author Organization [employer] Address [address] [facility] Attn: Epic Prelude ADT DARRIN GRANT [place] [id number] Care Team Providers Care Label Machine Operator Name Role Phone Unavailable Primary Care Provider [...]
--- OUTSIDE RECORDS SUMMARY | 2024-11-05 14:10 | XMS_ITS | Clinical Summary ---
Author Organization [facility] Care Team Providers Care Enterprise Manager Name Role Phone Unavailable Primary Care Provider Unavailabl e Social History Tobacco Use Types Packs/Day Years Used Date Smoking Tobacco: Never Assessed Comments Unknown Sex and Gender Information Value Date Recorded Sex Assigned at Not on file Legal Sex Female 2:18 PM CDT Gender Identity Not on file Sexual Orientation Not on file Plan of Treatment Health Maintenance Due Date Last Done Comments Hepatitis C Virus (HCV) Screening 1960 TdaP Immunization 1960 Cologuard 2003 Colonoscopy 2003 Colorectal Cancer Screening 2003 Immunochemical Fecal Occult Blood 2003 Pneumococcal Immunization (5 0+ years) (1 of 1 - PCV) 01/19/2008 Zoster Immunization (1 of 2) 01/19/2008 SARS-COV-2 Immunization (1 - 2023- season) 2023 Influenza Immunization (#1) 2024 Respiratory Syncytial Virus (RSV) Immunization (Adult) (1 - 1-dose 75+ series) 2033 Hepatitis B Immunization Aged Out No longer eligible based on patient's age to complete this topic Human Papillomavirus (HPV) Immunization Aged Out No longer eligible b ased on patient's age to complete this topic Meningococcal Immunization (ACWY) Aged Out No longer eligible based on patient's age to complete this topic Rotavirus Immunization Aged Out No lo nger eligible based on patient's age to complete this topic
[2024-11-05 14:42] LABS: Hematocrit 37.0 % (37.0-47.0); Hemoglobin 12.4 g/dL (12.0-15.0); Mean Corpuscular HGB Conc 33.5 g/dl (32-36); Mean Corpuscular Hemoglobin 30.0 pg (26-34); Mean Corpuscular Volume 89.4 fl (80-100); Platelet Count Result 298 k/mm3 (150-375); Red Blood Count 4.14 M/mm3 (4.2-5.4); White Blood Count 7.2 K/mm3 (4.5-10.0)
[2024-11-05 15:05] LABS: Alanine Aminotransferase 16 U/L (6-35); Albumin Level 4.3 g/dL (3.5-5.1); Alkaline Phosphatase 64 U/L (38-126); Anion Gap 7 mmol/L (4-12); Aspartate Amino Transferase 25 U/L (14-36); Bilirubin,Total 0.4 mg/dL (0.2-1.3); Blood Urea Nitrogen 13 mg/dL (7-17); Calcium 9.1 mg/dL (8.4-10.2); Carbon Dioxide 24 mmol/L (22-30); Chloride 103 mmol/L (98-107); Estimated Glomerular Filt Rate 57; Glucose 85 mg/dL (65-110); Magnesium 2.2 mg/dL (1.6-2.3); Potassium 4.4 mmol/L (3.4-5.0); Sodium 134 mmol/L (137-145); Total Protein 7.6 g/dL (6.3-8.2)
[2024-11-05 15:12] LABS: NT Pro B Type Natriuretic Pept 196 pg/mL (19.9-100)
[2024-11-05 15:34] LABS: Thyroid Stimulating Hormone 1.910 uIU/mL (0.465-4.680)
[2024-11-05 16:09] LABS: Vitamin B12 230.0 pg/mL (239-931)
== END 2024-11-05 14:00 | disposition home or self-care (01) ==
PROVIDERS: PCP Family Medicine; Visit Provider Nurse Practitioner Family
DX: R06.02 Shortness of breath (principal); I10 Essential (primary) hypertension; I49.9 Cardiac arrhythmia, unspecified; R53.83 Other fatigue
CPT/HCPCS: 36415; 80053; 82607; 82746; 83735; 83880; 84443; 85027

== ENCOUNTER 2024-12-17 12:36 | Outpatient (CLI) | payer MEDICARE, SELFPAY ==
--- NOTE | 2024-12-17 | ECHO_ITS ---
Patient Info Name: Sherita Jiang Age: 64 years : 1960 Gender: Female Ht: 60 in Wt: 140 lbs BSA: 1.66 m2 HR: 63 bpm BP: 127 / 76 mmHg Heart Rhythm: Sinus Rhythm Technical Quality: Fair Exam Date: 12/17/2024 1:04 PM Patient Status: O Admit Date: 12/17/2024 Exam Type: CA echo doppler color flow Complete two-dimensional, color flow and Doppler transthoracic echocardiogram is performed. Upholstery Auto Trimmer: Adrianna Ledezma Attending Provider: Deisy Ruvalcaba Summary 1. Complete two-dimensional, color flow and Doppler transthoracic echocardiogram is performed. 2. Left ventricular chamber dimension is normal. 3. Left ventricular systolic function is normal, estimated at 65-70. 4. There is no increased left ventricular wall thickness. 5. The left ventricular diastolic function is normal. 6. Left atrial chamber dimension is mildly enlarged. 7. There is mild mitral valve regurgitation. 8. The mitral valve has anterior prolapse. 9. There is mild tricuspid valve regurgitation. 10. Mild pulmonary hypertension, estimated pulmonary arterial systolic pressure is 38 mmHg. 11. There is mild pulmonic regurgitation. 12. Suspected atrial septal defect visualized by color flow imaging. 13. Recommend advanced cardiac imaging such as transesophageal echocardiogram, cardiac MRI, CT scan further anatomical evaluation of the atrial septum. Left Ventricle Left ventricular chamber dimension is normal. Left ventricular systolic function is normal, estimated at 65-70. There is no increased left ventricular wall thickness. The left ventricular diastolic function is normal. Right Ventricle Right ventricular chamber dimension is normal. Right ventricular systolic function is normal. Left Atria Left atrial chamber dimension is mildly enlarged. Right Atria Right atrial chamber dimension is normal. Atrial Septum Suspected atrial septal defect visualized by color flow imaging. Aortic Valve The aortic valve is trileaflet. There is mild aortic valve sclerosis. There is no aortic valve stenosis. There is trace aortic valve regurgitation. Pulmonic Valve The pulmonic valve is normal. There is no pulmonic valve stenosis. There is mild pulmonic regurgitation. Mitral Valve The mitral valve has anterior prolapse. There is no mitral valve stenosis. There is mild mitral valve regurgitation. Tricuspid Valve The tricuspid valve leaflets are normal. There is no significant tricuspid valve stenosis. There is mild tricuspid valve regurgitation. Mild pulmonary hypertension, estimated pulmonary arterial systolic pressure is 38 mmHg. Pericardium/Pleural The pericardium appears normal. There is no pericardial effusion. Inferior Vena Cava Normal inferior vena cava with >50% collapse upon inspiration consistent with normal right atrial pressure, 10 mmHg. Aorta The aortic root size at the sinus of Valsalva is normal. Left Ventricular Outflow Tract Name Value Normal LVOT 2D LVOT Diameter 1.7 cm LVOT Doppler LVOT Peak Velocity 114 cm/s LVOT Peak Gradient 5 mmHg LVOT Mean Gradient 3 mmHg LVOT VTI 26 cm LVOT VTI/AV VTI Ratio 0.7 LVOT Stroke Volume 61 ml LVOT CO 10.8 l/min LVOT CI 6.5 l/min/m2 Pulmonic Valve Name Value Normal PV Doppler PV Peak Velocity 93 cm/s PV Peak Gradient 3 mmHg Mitral Valve Name Value Normal MV Diastolic Function MV E Peak Velocity 93 cm/s MV A Peak Velocity 76 cm/s MV E/A 1.2 MV Decel Time (PW) 218 ms MV Annular TDI MV E/e' (Septal) 10.3 MV E/e' (Lateral) 8.5 MV E/e' (Average) 9.4 Tricuspid Valve Name Value Normal TV Regurgitation Doppler TR Peak Velocity 265 cm/s TR Peak Gradient 28 mmHg Estimated PAP/RSVP RA Pressure 10 mmHg <=5 PA Systolic Pressure 38 mmHg <36 RV Systolic Pressure 38 mmHg <36 TV Annular TDI TV Lateral Dorothy s' Velocity 11.2 cm/s >=9.5 Aorta Name Value Normal Ascending Aorta Ao Root Diameter (MM) 2.8 cm Ao Root Diam Index (MM) 1.7 cm/m2 Aortic Valve Name Value Normal AV Doppler AV Peak Velocity 173 cm/s AV Peak Gradient 12 mmHg AV Mean Gradient 6 mmHg AV VTI 36 cm AV Area (Cont Eq VTI) 1.7 cm2 >=3.0 AV Area (Cont Eq Pierce) 1.5 cm2 AV DI (Pierce) 0.66 AV Regurgitation 2D LVOT Area 2.3 cm2 Ventricles Name Value Normal LV Dimensions 2D/MM IVS Diastolic Thickness (2D) 0.6 cm 0.6-1.0 LVID Diastole (2D) 4.5 cm 3.8-5.2 LVIW Diastolic Thickness (2D) 0.7 cm 0.6-0.9 LVID Systole (2D) 2.9 cm 2.2-3.5 LVOT Diameter 1.7 cm LV Mass (2D Cubed) 81.24 g 67.00-162.00 LV Mass Index (2D Cubed) 49 g/m2 43-95 Relative Wall Thickness (2D) 0.30 <=0.42 LV Fractional Shortening/Ejection Fraction 2D/MM LV Fractional Shortening (2D) 36 % 27-45 LV EF (2D Teichholz) 65 % LV Diastolic Volume (4C MOD) 64 ml LV EF (4C MOD) 76 % LV Diastolic Volume (2C MOD) 70 ml LV EF (2C MOD) 72 % LV Diastolic Volume (BP MOD) 68 ml 46-106 LV Diastolic Volume Index (BP MOD) 41 ml/m2 29-61 LV Systolic Volume (BP MOD) 17 ml 14-42 LV Systolic Volume Index (BP MOD) 10 ml/m2 8-24 LV EF (BP MOD) 74 % 54-74 LV Diastolic Length (4C) 7.2 cm LV Systolic Length (4C) 5.5 cm LV Stroke Volume (4C MOD) 49 ml RV Dimensions 2D/MM RVID Diastole (2D) 3.6 cm 2.1-3.5 Atria Name Value Normal LA Dimensions LA Dimension (MM) 0.0 cm 2.7-3.8 LA Volume (4C A-L) 46 ml LA Volume (BP A-L) 51 ml RA Dimensions RA Systolic Major [place] Length (4C) 4.5 cm 2.2-2.8 RA Area (4C) 15.0 cm2 <=18.0 Report Signatures
--- OUTSIDE RECORDS SUMMARY | 2024-12-17 14:09 | XMS_ITS | Clinical Summary ---
Author Organization [facility] Care Team Providers Care Patient Services Representative Name Role Phone Unavailable Primary Care Provider [...]
--- OUTSIDE RECORDS SUMMARY | 2024-12-17 14:09 | XMS_ITS | Clinical Summary ---
Author Organization [employer] Address [address] Attn: Epic Prelude ADT DARRIN [place] [id number] Care Team Providers Care Motorman/Woman Name Role Phone Unavailable Primary Care Provider [...]
== END 2024-12-17 12:37 | disposition home or self-care (01) ==
PROVIDERS: PCP Family Medicine; Visit Provider Nurse Practitioner Family
DX: I49.9 Cardiac arrhythmia, unspecified (principal); I08.1 Rheumatic disorders of both mitral and tricuspid valves; I37.1 Nonrheumatic pulmonary valve insufficiency; I27.20 Pulmonary hypertension, unspecified
CPT/HCPCS: 93306